=== PATIENT | female | born 1985 | race African-American/Black ===

== ENCOUNTER 2016-03-27 08:20 | Emergency (ER) | payer SELFPAY ==
[~2016-03-27] VITALS: Ht 165.1 cm; Wt 55.0 kg
[~2016-03-27 08:20] MED LIST: BENT20TA PO; FAMO1TAB73 PO; NORC5TAB PO; ZOFR4TAB3 SL
[2016-03-27 08:23] VITALS: BP 142/101; PULSE 110; RESP 20; TEMP 98; O2SAT 98
[2016-03-27] MEDS ORDERED: PANTOPRAZOLE SODIUM 40 MG VIAL IVP ONE (08:45)
[2016-03-27] MEDS ORDERED: METOCLOPRAMIDE HCL 10 MG/2 ML VIAL IVP ONE (08:45)
[2016-03-27] MEDS ORDERED: ALUMINUM/MAGNESIUM/SIMETH 30 ML CUP PO ONE (08:45)
[2016-03-27] MEDS ORDERED: diphenhydrAMINE HCL 50 MG/ML VIAL IVP ONE (08:45)
[2016-03-27] MEDS ORDERED: LORazepam 2 MG/ML VIAL IV PUSH ONE ×2 (08:45→09:30)
[2016-03-27] MEDS ORDERED: SODIUM CHLORIDE 0.9% FLUSH 5 ML FLUSH IVF PRN (08:45)
[2016-03-27] MEDS ORDERED: LIDOCAINE VISCOUS 2% SOLN 15 ML UDC PO ONE (08:45)
--- NOTE | 2016-03-27 08:46 | PD ---
HPI Chief Complaint: Abdominal Pain Time Seen by Provider: 08:29 Travel History International Travel<30 days: No Contact w/Intl Traveler<30days: No Traveled to known affect area: No History of Present Illness HPI 31-year-old female with history of gastritis, GERD here with complaint of abdominal pain. At approximately 8 PM yesterday patient began to have a burning , achy epigastric abdominal discomfort with associated nausea, vomiting. No hematemesis. Patient has been taking [id number] Prilosec for her GERD and states she's been compliant with this. She denies any dietary indiscretions. Patient states this is similar to her previous episodes of GERD or gastritis flares. She was seen in our ER recently with negative labs and CT abdomen and pelvis with similar symptoms. No fevers or chills. Normal bowel movements. Patient also has a history of anxiety and complains of same at this time. PFSH Past Medical History Anxiety: Yes Depression: Yes Influenza Vaccination: No ?: Not LMP: 03/2016 Past Surgical History Appendectomy: Yes Cholecystectomy: Yes Other Surgery: Yes (cysts removed off head, axillae, buttock) Social History Alcohol Use: Yes (social) Tobacco Use: Yes (1ppd) Substance Use: No Allergies-Medications (Allergen,Severity, Reaction): Coded Allergies: No Known Allergies (Unverified , 03/27/16) Reported Meds & Prescriptions Reported Meds & Active Scripts Active Reported Prilosec (Omeprazole) 20 Mg Cap 20 Mg PO DAILY Review of Systems Except as stated in HPI: all other systems reviewed are Neg Physical Exam Narrative GENERAL: Anxious female in no acute distress SKIN: Warm and dry. HEAD: Normocephalic. EYES: Pupils equal and round. No scleral icterus. No injection or drainage. ENT: No nasal bleeding or discharge. Mucous membranes pink and moist. NECK: Supple CARDIOVASCULAR: Regular rate and rhythm. No murmur appreciated. RESPIRATORY: No accessory muscle use. Clear to auscultation. Breath sounds equal bilaterally. GASTROINTESTINAL: Abdomen soft, mild epigastric discomfort without rebound or guarding MUSCULOSKELETAL: Normal gait. NEUROLOGICAL: Awake and alert. Normal speech. PSYCHIATRIC: Anxious Data Data Last Documented VS Vital Signs Date Time Temp Pulse Resp B/P Pulse Ox O2 Delivery O2 Flow Rate FiO2 03/27/16 09:18 89 22 124/85 96 Room Air 03/27/16 08:23 98.0 Orders Complete Blood Count With Diff (03/27/16 08:33) Comprehensive Metabolic Panel (03/27/16 08:33) Lipase (03/27/16 08:33) Iv Access Insert/Monitor (03/27/16 08:33) Ecg Monitoring (03/27/16 08:33) Oximetry (03/27/16 08:33) Pantoprazole Inj (Protonix Inj) (03/27/16 08:45) Sodium Chloride 0.9% Flush (Ns Flush) (03/27/16 08:45) Al-Mag Hy-Si 40-40-4 Mg/Ml Liq (Mag-Al P (03/27/16 08:45) Lidocaine 2% Viscous (Xylocaine 2% Visco (03/27/16 08:45) Diphenhydramine Inj (Benadryl Inj) (03/27/16 08:45) Metoclopramide Inj (Reglan Inj) (03/27/16 08:45) Lorazepam Inj (Ativan Inj) (03/27/16 08:45) Promethazine Inj (Phenergan Inj) (03/27/16 09:15) Lorazepam Inj (Ativan Inj) (03/27/16 09:30) Labs Laboratory Tests Test 03/27/16 08:45 White Blood Count 11.1 TH/MM3 Red Blood Count 5.72 MIL/MM3 Hemoglobin 14.7 GM/DL Hematocrit 44.5 % Mean Corpuscular Volume 77.8 FL Mean Corpuscular Hemoglobin 25.7 PG Mean Corpuscular Hemoglobin 33.0 % Concent Red Cell Distribution Width 14.1 % Platelet Count 534 TH/MM3 Mean Platelet Volume 8.5 FL Neutrophils (%) (Auto) 71.1 % Lymphocytes (%) (Auto) 23.6 % Monocytes (%) (Auto) 4.0 % Eosinophils (%) (Auto) 0.6 % Basophils (%) (Auto) 0.7 % Neutrophils # (Auto) 7.9 TH/MM3 Lymphocytes # (Auto) 2.6 TH/MM3 Monocytes # (Auto) 0.5 TH/MM3 Eosinophils # (Auto) 0.1 TH/MM3 Basophils # (Auto) 0.1 TH/MM3 CBC Comment DIFF FINAL Differential Comment Sodium Level 139 MEQ/L Potassium Level 4.6 MEQ/L Chloride Level 105 MEQ/L Carbon Dioxide Level 23.9 MEQ/L Anion Gap 10 MEQ/L Blood Urea Nitrogen 11 MG/DL Creatinine 0.94 MG/DL Estimat Glomerular Filtration 84 ML/MIN Rate Random Glucose 120 MG/DL Calcium Level 9.7 MG/DL Total Bilirubin 0.4 MG/DL Aspartate Amino Transf 40 U/L (AST/SGOT) Alanine Aminotransferase 26 U/L (ALT/SGPT) Alkaline Phosphatase 103 U/L Total Protein 9.4 GM/DL Albumin 4.3 GM/DL Lipase 165 U/L [facility] Medical Decision Making Medical Screen Exam Complete: Yes Emergency Medical Condition: Yes Medical Record Reviewed: Yes Differential Diagnosis 31-year-old female with history of gastritis, GERD, anxiety here with complaint of epigastric pain, nausea vomiting, anxiety. Symptoms consistent with gastritis versus GERD. Differential includes pancreatitis, hepatobiliary pathology. Anxiety certainly component of her underlying symptoms. Narrative Course Patient placed on monitor, IV established and blood obtained. Patient given IV PPI, GI cocktail, 50 mg Benadryl, 10 mg Reglan and 0.5 mg Ativan. Patient still symptomatic, almost forcing herself to vomit. Given IM Phenergan and additional Ativan. CBC, CMP, lipase and unremarkable. Patient was able to tolerate oral challenge and still complains of pain. She was informed that we do not treat chronic pain in her emergency department with narcotics but we are happy to try nonnarcotic options such as Toradol, Tylenol, ibuprofen, etc. Patient stated "no, I will just take something when I get home". Patient was discharged home with antiemetics and PPI. Diagnosis Primary Impression: Gastritis Qualified Code: K29.50 - Other chronic gastritis without hemorrhage Additional Impression: GERD (gastroesophageal reflux disease) Qualified Code: K21.9 - Gastroesophageal reflux disease without esophagitis Referrals: Ying Khan MD call for appointment [facility] [[email or web address]] call for appointment Primary Care Physician call for appointment Additional Instructions: Protonix as prescribed. Nausea medications as needed. Follow-up with primary care provider to establish care. Med/Other Pt SpecificInfo: Prescription(s) given Scripts Promethazine (Phenergan)25 Mg Tab25 Mg PO Q6H PRN (Nausea/Vomiting) #10 TAB Ref 0 Prov:Gracie Rabago MD 03/27/16 Pantoprazole (Protonix)40 Mg Tab40 Mg PO DAILY #30 TAB Ref 0 Prov:Gracie Rabago MD 03/27/16 Disposition: 01 DISCHARGE HOME Condition: Stable Gracie Rabago MD Mar 27, 2016 08:46
[2016-03-27 09:09] LABS: AUTOMATED NEUTROPHIL # 7.9 TH/MM3 (1.8-7.7); BASOPHIL # 0.1 TH/MM3 (0-0.2); BASOPHIL % 0.7 % (0.0-2.0); EOSINOPHIL # 0.1 TH/MM3 (0-0.4); EOSINOPHIL % 0.6 % (0.0-4.0); HEMATOCRIT 44.5 % (35.0-46.0); LYMPH % 23.6 % (9.0-44.0); LYMPHOCYTE # 2.6 TH/MM3 (1.0-4.8); MEAN CELL VOLUME 77.8 FL (80.0-100.0); MEAN CORPUSCULAR HEMOGLOBIN 25.7 PG (27.0-34.0); NEUT % 71.1 % (16.0-70.0); PLATELET COUNT 534 TH/MM3 (150-450); RED BLOOD COUNT 5.72 MIL/MM3 (4.00-5.30); RED CELL DISTRIBUTION WIDTH 14.1 % (11.6-17.2); WHITE BLOOD COUNT 11.1 TH/MM3 (4.0-11.0)
[2016-03-27 09:10] LABS: HEMO FLAGS DIFF FINAL
[2016-03-27] MEDS ORDERED: PROMETHAZINE INJ 25 MG/ML VIAL IM ONE (09:15)
[2016-03-27] MEDS ORDERED: PRIL20CA9 PO (09:15)
[2016-03-27 09:18] VITALS: BP 124/85; PULSE 89; RESP 22; O2SAT 96
[2016-03-27 09:29] LABS: ALKALINE PHOSPHATASE 103 U/L (45-117); ALT (GPT) 26 U/L (10-53); ANION GAP 10 MEQ/L (5-15); AST (GOT) 40 U/L (15-37); BICARBONATE 23.9 MEQ/L (21.0-32.0); BLOOD UREA NITROGEN 11 MG/DL (7-18); CHLORIDE 105 MEQ/L (98-107); GLOMERULAR FILTRATION RATE 84 ML/MIN (>89); POTASSIUM 4.6 MEQ/L (3.5-5.1); SODIUM (NA) 139 MEQ/L (136-145); TOTAL BILIRUBIN ADULT 0.4 MG/DL (0.2-1.0)
[2016-03-27] MEDS ORDERED: PROT40TA PO (09:59)
[2016-03-27] MEDS ORDERED: PROM25TA5 PO (09:59)
== END 2016-03-27 10:22 | disposition home or self-care (01) ==
LOC: NEPE 08:20
DX: K29.70 Gastritis, unspecified, without bleeding (principal); K21.9 Gastro-esophageal reflux disease without esophagitis; R11.2 Nausea with vomiting, unspecified; F17.210 Nicotine dependence, cigarettes, uncomplicated
CPT/HCPCS: 80053; 83690; 85025; 96372; 96374; 96375; 96376; 99284; C9113; J1200; J2060; J2550; J2765

== ENCOUNTER 2016-04-07 13:40 | Emergency (ER) | payer OTHER ==
[~2016-04-07] VITALS: Ht 165.1 cm; Wt 54.0 kg
[~2016-04-07 13:40] MED LIST changes: -BENT20TA PO; -FAMO1TAB73 PO; -NORC5TAB PO; +PRIL20CA9 PO; +PROM25TA5 PO; +PROT40TA PO; -ZOFR4TAB3 SL
[2016-04-07 14:24] VITALS: BP 129/60; PULSE 100; RESP 12; TEMP 98.4; O2SAT 94
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
[2016-04-07] MEDS ORDERED: KETOROLAC TROMETHAMINE 60 MG/2 ML (IM) VIAL IM ONE (15:15)
[2016-04-07] MEDS ORDERED: ORPHENADRINE INJ 60 MG/2 ML AMP IM ONE (15:15)
[2016-04-07] MEDS ORDERED: CYCL1TAB29 PO (15:21)
[2016-04-07] MEDS ORDERED: IBUP800T23 PO (15:21)
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
[2016-04-07 16:11] VITALS: BP 118/62
== END 2016-04-07 16:12 | disposition home or self-care (01) ==
LOC: NEPB 13:40
DX: S20.219A Contusion of unspecified front wall of thorax, initial encounter (principal); S16.1XXA Strain of muscle, fascia and tendon at neck level, initial encounter; F17.210 Nicotine dependence, cigarettes, uncomplicated; V43.62XA Car passenger injured in collision with other type car in traffic accident, initial encounter
CPT/HCPCS: 71010; 96372; 99284; J1885; J2360

== ENCOUNTER 2016-06-04 20:05 | Emergency (ER) | payer OTHER ==
[~2016-06-04] VITALS: Ht 165.1 cm; Wt 59.1 kg
[~2016-06-04 20:05] MED LIST changes: +CYCL1TAB29 PO; +IBUP800T23 PO
[2016-06-04 20:08] VITALS: BP 160/111; PULSE 140; RESP 16; TEMP 98.6; O2SAT 96
[2016-06-04] MEDS ORDERED: LORazepam 2 MG/ML VIAL IV PUSH ONE (22:30)
[2016-06-04] MEDS ORDERED: SODIUM CHLOR 0.9% 1000 ML INJ 1,000 ML IV ONE ×2 (22:30)
[2016-06-04] MEDS ORDERED: PROCHLORPERAZINE INJ 10 MG/2 ML VIAL IV PUSH ONE (22:30)
[2016-06-04] MEDS ORDERED: ZYPR7.5T PO (22:30)
[2016-06-04] MEDS ORDERED: diphenhydrAMINE HCL 50 MG/ML VIAL IV PUSH ONE (22:30)
--- NOTE | 2016-06-04 22:47 | PD ---
HPI Chief Complaint: Abdominal Pain Time Seen by Provider: 22:18 Travel History International Travel<30 days: No Contact w/Intl Traveler<30days: No Traveled to known affect area: No History of Present Illness HPI So 31-year-old woman who presents to the emergency department he states "I've been having panic attack after panic attack". She states she normally is on medicines for anxiety and depression but has not had it 2 weeks. She is complaining with a new psychiatrist tomorrow. [place]. She states along with her anxiety and panic symptoms she's had some nausea vomiting abdominal pain and stool changes. States she was told to patch his abdominal migraines and often has GI upset with her anxiety symptoms. She also has had colitis 2 times in the past year or so. Denies any other recent illness or injury. History Past Medical History Narrative Medical Anxiety and panic, depression Abdominal migraines, colitis LMP: 05/30/2016 Social History Alcohol Use: Yes (social) Tobacco Use: Yes (1ppd) Allergies-Medications (Allergen,Severity, Reaction): Coded Allergies: No Known Allergies (Unverified , 06/04/16) Reported Meds & Prescriptions Reported Meds & Active Scripts Active Reported Zyprexa (Olanzapine) 7.5 Mg Tab 7.5 Mg PO HS Review of Systems Except as stated in HPI: all other systems reviewed are Neg Physical Exam Narrative GENERAL: Anxious appearing 31-year-old woman, standing in the bed with her hands on the bed and bent over, little bit a hyperventilation, SKIN: Focused skin assessment warm/dry. HEAD: Atraumatic. Normocephalic. EYES: Pupils equal and round. No scleral icterus. No injection or drainage. ENT: No nasal bleeding or discharge. Mucous membranes pink and moist. NECK: Trachea midline. No JVD. CARDIOVASCULAR: Heart rate rapid and irregular. RESPIRATORY: No accessory muscle use. Clear to auscultation. Breath sounds equal bilaterally. GASTROINTESTINAL: Demonstrates flat and soft but does have some mild diffuse tenderness. No rebound or guarding. MUSCULOSKELETAL: No obvious deformities. No clubbing. No cyanosis. No edema. NEUROLOGICAL: Awake and alert. No obvious cranial nerve deficits. Motor grossly within normal limits. Normal speech. PSYCHIATRIC: Anxious. Data Data Last Documented VS Vital Signs Date Time Temp Pulse Resp B/P Pulse Ox O2 Delivery O2 Flow Rate FiO2 06/04/16 22:22 18 06/04/16 20:08 98.6 140 160/111 96 Room Air Orders Complete Blood Count With Diff (06/04/16 22:29) Comprehensive Metabolic Panel (06/04/16 22:29) Beta Hcg (Quant/Titer) (06/04/16 22:29) Urinalysis - C+S If Indicated (06/04/16 22:29) Iv Access Insert/Monitor (06/04/16 22:29) Lorazepam Inj (Ativan Inj) (06/04/16 22:30) Prochlorperazine Inj (Compazine Inj) (06/04/16 22:30) Diphenhydramine Inj (Benadryl Inj) (06/04/16 22:30) Sodium Chlor 0.9% 1000 Ml Inj (Ns 1000 M (06/04/16 22:30) Sodium Chlor 0.9% 1000 Ml Inj (Ns 1000 M (06/04/16 22:30) Ketorolac Inj (Toradol Inj) (06/04/16 23:30) Labs Laboratory Tests Test 06/04/16 23:00 White Blood Count 5.3 TH/MM3 Red Blood Count 5.62 MIL/MM3 Hemoglobin 14.2 GM/DL Hematocrit 42.8 % Mean Corpuscular Volume 76.2 FL Mean Corpuscular Hemoglobin 25.2 PG Mean Corpuscular Hemoglobin 33.1 % Concent Red Cell Distribution Width 13.7 % Platelet Count 398 TH/MM3 Mean Platelet Volume 8.1 FL Neutrophils (%) (Auto) 51.4 % Lymphocytes (%) (Auto) 38.4 % Monocytes (%) (Auto) 9.0 % Eosinophils (%) (Auto) 0.4 % Basophils (%) (Auto) 0.8 % Neutrophils # (Auto) 2.7 TH/MM3 Lymphocytes # (Auto) 2.0 TH/MM3 Monocytes # (Auto) 0.5 TH/MM3 Eosinophils # (Auto) 0.0 TH/MM3 Basophils # (Auto) 0.0 TH/MM3 CBC Comment DIFF FINAL Differential Comment Sodium Level 136 MEQ/L Potassium Level 3.1 MEQ/L Chloride Level 98 MEQ/L Carbon Dioxide Level 26.7 MEQ/L Anion Gap 11 MEQ/L Blood Urea Nitrogen 12 MG/DL Creatinine 0.92 MG/DL Estimat Glomerular Filtration 86 ML/MIN Rate Random Glucose 116 MG/DL Calcium Level 9.5 MG/DL Total Bilirubin 0.7 MG/DL Aspartate Amino Transf 22 U/L (AST/SGOT) Alanine Aminotransferase 21 U/L (ALT/SGPT) Alkaline Phosphatase 90 U/L Total Protein 8.7 GM/DL Albumin 4.2 GM/DL Human Chorionic Gonadotropin, LESS THAN 1 Quant MIU/ML MDM Medical Decision Making Medical Screen Exam Complete: Yes Emergency Medical Condition: Yes Interpretation(s) LABS: CBC is unremarkable. CMP is unremarkable HCG is negative Differential Diagnosis Anxiety, dehydration, infection, colitis, other Narrative Course Medical decision-making 31-year-old woman presents emergency Department with some GI upset and some worsening anxiety and panic symptoms. Patient seems to attribute all of her symptoms to her panic disorder. She is not on benzodiazepines as an outpatient , and she's been 2 weeks out of medicines making any kind of withdrawal syndrome less likely. She does have some elevated heart rate. We'll give her IV fluids, benzos, check labs and urine, likely discharge for follow-up with her new psychiatrist tomorrow as scheduled. FINAL: Patient feeling improved. Still some nausea and abdominal pain. She was given Toradol. She is requesting opiates. Refuses Tylenol or Bentyl. I don't think we should give opiates for this complaint. She looks otherwise well. She is a month or psychiatrist tomorrow. States she uses Phenergan at home for nausea sometimes. We will give her prescription for Zofran. Outpatient follow-up as planned. Diagnosis Primary Impression: Panic attack Additional Impression: Nausea & vomiting Qualified Code: R11.2 - Non-intractable vomiting with nausea, unspecified vomiting type Additional Instructions: Use Zofran as needed for nausea or vomiting. Follow up with her psychiatrist tomorrow as planned. Return to the emergency department for any new or worsening symptoms. Med/Other Pt SpecificInfo: Prescription(s) given Scripts Ondansetron Odt (Zofran Odt)4 Mg Tab4 Mg SL Q8HR PRN (Nausea/Vomiting) #15 TAB May substitute non-ODT form. Prov:Mateo Grimes MD 06/04/16 Disposition: 01 DISCHARGE HOME Condition: Stable Mateo Grimes MD Jun 04, 2016 22:47
[2016-06-04 23:15] LABS: AUTOMATED NEUTROPHIL # 2.7 TH/MM3 (1.8-7.7); BASOPHIL % 0.8 % (0.0-2.0); EOSINOPHIL % 0.4 % (0.0-4.0); HEMATOCRIT 42.8 % (35.0-46.0); HEMO FLAGS DIFF FINAL; LYMPH % 38.4 % (9.0-44.0); MEAN CELL VOLUME 76.2 FL (80.0-100.0); MEAN CORPUSCULAR HEMOGLOBIN 25.2 PG (27.0-34.0); MEAN CORPUSCULAR HGB CONC 33.1 % (32.0-36.0); NEUT % 51.4 % (16.0-70.0); PLATELET COUNT 398 TH/MM3 (150-450); RED BLOOD COUNT 5.62 MIL/MM3 (4.00-5.30); RED CELL DISTRIBUTION WIDTH 13.7 % (11.6-17.2); WHITE BLOOD COUNT 5.3 TH/MM3 (4.0-11.0)
[2016-06-04] MEDS ORDERED: KETOROLAC TROMETHAMINE 30 MG/ML (IVP) VIAL IVP ONE (23:30)
[2016-06-04 23:44] LABS: ANION GAP 11 MEQ/L (5-15); AST (GOT) 22 U/L (15-37); BICARBONATE 26.7 MEQ/L (21.0-32.0); BLOOD UREA NITROGEN 12 MG/DL (7-18); CHLORIDE 98 MEQ/L (98-107); GLOMERULAR FILTRATION RATE 86 ML/MIN (>89); POTASSIUM 3.1 MEQ/L (3.5-5.1); SODIUM (NA) 136 MEQ/L (136-145)
[2016-06-04 23:49] LABS: ALKALINE PHOSPHATASE 90 U/L (45-117); ALT (GPT) 21 U/L (10-53); BETA HCG QUANT LESS THAN 1 MIU/ML (0-5); TOTAL BILIRUBIN ADULT 0.7 MG/DL (0.2-1.0)
[2016-06-04] MEDS ORDERED: ZOFR4TAB3 SL (23:55)
[2016-06-05] MEDS ORDERED: ONDANSETRON HCL 4 MG/2 ML VIAL IV ONE
== END 2016-06-05 01:09 | disposition home or self-care (01) ==
LOC: NEPC 20:05
DX: F41.0 Panic disorder [episodic paroxysmal anxiety] (principal); F41.9 Anxiety disorder, unspecified; R11.2 Nausea with vomiting, unspecified; F32.9 Major depressive disorder, single episode, unspecified; F17.210 Nicotine dependence, cigarettes, uncomplicated
CPT/HCPCS: 80053; 84702; 85025; 96374; 96375; 99284; J0780; J1200; J1885; J2060; J2405; J7030

== ENCOUNTER 2016-06-22 08:06 | Emergency (ER) | payer MEDICAID, OTHER ==
[~2016-06-22] VITALS: Ht 165.1 cm; Wt 62.0 kg
[~2016-06-22 08:06] MED LIST changes: -CYCL1TAB29 PO; -IBUP800T23 PO; -PRIL20CA9 PO; -PROM25TA5 PO; -PROT40TA PO; +ZOFR4TAB3 SL; +ZYPR7.5T PO
[2016-06-22 08:09] VITALS: BP 125/96; PULSE 89; RESP 18; TEMP 99.1; O2SAT 98
--- NOTE | 2016-06-22 08:36 | PD ---
HPI . suicidal ideation Chief Complaint: Medication Refill Request Time Seen by Provider: 08:36 Travel History International Travel<30 days: No Contact w/Intl Traveler<30days: No Traveled to known affect area: No History of Present Illness HPI 31-year-old female with history of anxiety and depression here with complaints of worsening anxiety and depression. Patient said she's been off of her medications for quite some time and she is feeling suicidal. She has an appointment with Bala Lopez on Wednesday and cannot wait until then. She was recently hospitalized at [facility] for similar and was given Ativan. She has since run out and now feeling suicidal. Her only concern is that she has a 6-year-old child who is at school and she does not know who will be able to pick him up. She is very tearful and says she is thinking of harming herself , but does not have an actual plan. [facility] Past Medical History Anxiety: Yes Depression: Yes Gastrointestinal Disorders: Yes (GASTRITIS) ?: Not LMP: 06/20/16 Past Surgical History Appendectomy: Yes Cholecystectomy: Yes Other Surgery: Yes (cysts removed off head, axillae, buttock) Social History Alcohol Use: Yes (social) Tobacco Use: Yes (1ppd) Substance Use: No Allergies-Medications (Allergen,Severity, Reaction): Coded Allergies: No Known Allergies (Unverified , 06/22/16) Reported Meds & Prescriptions Reported Meds & Active Scripts Active Reported Zoloft (Sertraline HCl) 100 Mg Tab 100 Mg PO DAILY Zyprexa (Olanzapine) 7.5 Mg Tab 7.5 Mg PO HS Review of Systems General / Constitutional: No: Fever Eyes: No: Visual changes HENT: No: Headaches Cardiovascular: No: Chest Pain or Discomfort Respiratory: No: Shortness of Breath Gastrointestinal: No: Abdominal Pain Genitourinary: No: Dysuria Musculoskeletal: No: Pain Skin: No Rash Neurologic: No: Weakness Psychiatric: Positive: Anxiety, Depression, Suicidal Ideations Endocrine: No: Polydipsia Hematologic/Lymphatic: No: Easy Bruising Physical Exam Narrative GENERAL: AAO x 3, Well-nourished, well-developed patient. Tearful and crying in the room. Curled in position. SKIN: Warm and dry. No visible rashes or bruising. HEAD: Normocephalic and atraumatic. EYES: No scleral icterus. No injection or drainage. EOM intact, PERRLA ENT: No nasal drainage noted. Mucous membranes pink. Airway patent. NECK: Supple, trachea midline. No JVD. No lymphadenopathy CARDIOVASCULAR: Regular rate and rhythm without murmurs, gallops, or rubs. RESPIRATORY: Breath sounds equal bilaterally. No accessory muscle use. No rhonchi or rales. GASTROINTESTINAL: Abdomen soft, non-tender, nondistended. EXTREMITIES: No cyanosis or edema. BACK: Nontender without obvious deformity. No CVA tenderness. PSYCH: AAO x 3, depressed affect. Data Data Last Documented VS Vital Signs Date Time Temp Pulse Resp B/P Pulse Ox O2 Delivery O2 Flow Rate FiO2 06/22/16 08:09 99.1 89 18 125/96 98 Orders Complete Blood Count With Diff (06/22/16 09:13) Comprehensive Metabolic Panel (06/22/16 09:13) Ed Urine Pregnancytest Poc (06/22/16 09:13) Psych Screen (06/22/16 09:13) Drug Screen, Random Urine (06/22/16 09:13) MDM Medical Decision Making Medical Screen Exam Complete: Yes Emergency Medical Condition: Yes Medical Record Reviewed: Yes Differential Diagnosis Suicidal ideation, depression, anxiety Narrative Course 31-year-old female with history of anxiety and depression here with complaints of worsening anxiety and depression. Patient said she's been off of her medications for quite some time and she is feeling suicidal. She has an appointment with Bala Lopez on Wednesday and cannot wait until then. She was recently hospitalized at [facility] for similar and was given Ativan. She has since run out and now feeling suicidal. Her only concern is that she has a 6-year-old child who is at school and she does not know who will be able to pick him up. She is very tearful and says she is thinking of harming herself , but does not have an actual plan. Patient was transferred to a medical pod for further evaluation and treatment. Case was discussed with Dr. Grimes. Diagnosis Primary Impression: Suicidal thoughts Condition: Stable Romana Fried Jun 22, 2016 08:36
[2016-06-22] MEDS ORDERED: ZOLO100T PO ×2 (08:38→13:25)
[2016-06-22 09:38] LABS: BASOPHIL # 0.1 TH/MM3 (0-0.2); BASOPHIL % 0.7 % (0.0-2.0); EOSINOPHIL % 0.7 % (0.0-4.0); HEMATOCRIT 44.3 % (35.0-46.0); HEMO FLAGS DIFF FINAL; LYMPH % 22.3 % (9.0-44.0); LYMPHOCYTE # 1.6 TH/MM3 (1.0-4.8); MEAN CORPUSCULAR HEMOGLOBIN 26.2 PG (27.0-34.0); MEAN CORPUSCULAR HGB CONC 33.6 % (32.0-36.0); MONO % 5.3 % (0.0-8.0); PLATELET COUNT 388 TH/MM3 (150-450); RED BLOOD COUNT 5.67 MIL/MM3 (4.00-5.30); RED CELL DISTRIBUTION WIDTH 14.9 % (11.6-17.2); WHITE BLOOD COUNT 7.1 TH/MM3 (4.0-11.0)
[2016-06-22] MEDS ORDERED: LORazepam 1 MG TAB PO ONE (09:45)
[2016-06-22 09:48] LABS: ANION GAP 10 MEQ/L (5-15); AST (GOT) 20 U/L (15-37); BICARBONATE 25.5 MEQ/L (21.0-32.0); BLOOD UREA NITROGEN 12 MG/DL (7-18); CHLORIDE 102 MEQ/L (98-107); GLOMERULAR FILTRATION RATE 84 ML/MIN (>89); POTASSIUM 4.2 MEQ/L (3.5-5.1); SODIUM (NA) 137 MEQ/L (136-145)
[2016-06-22 09:51] LABS: ALKALINE PHOSPHATASE 102 U/L (45-117); ALT (GPT) 24 U/L (10-53); TOTAL BILIRUBIN ADULT 0.6 MG/DL (0.2-1.0)
[2016-06-22 10:30] VITALS: BP 122/81; PULSE 76; RESP 16; O2SAT 98
--- NOTE | 2016-06-22 11:17 | PD ---
HPI Chief Complaint: Medication Refill Request Time Seen by Provider: 09:13 Travel History International Travel<30 days: No Contact w/Intl Traveler<30days: No Traveled to known affect area: No History of Present Illness HPI 31-year-old woman who presents to the emergency department with increased anxiety symptoms, depression symptoms, with suicidal thoughts. She's had trouble with anxiety since she moved here recently. I saw her once the emergency department earlier with the symptoms. She had a psychiatrist over the next day but apparently went back to the emergency department in [facility]. Her previous [facility] psychiatrist called her in some Zyprexa which she was taking for her anxiety. She is now out of these and having increased depression symptoms and anxiety symptoms. She endorses path of wish but no actual suicidal plan. She would like to see psychiatry. History Past Medical History Narrative Medical Anxiety, panic, depression Abdominal migraines, colitis Tetanus Vaccination: Never Vaccinated Influenza Vaccination: No LMP: 06/20/16 Social History Alcohol Use: Yes (social) Tobacco Use: Yes (1ppd) Allergies-Medications (Allergen,Severity, Reaction): Coded Allergies: No Known Allergies (Unverified , 06/22/16) Reported Meds & Prescriptions Reported Meds & Active Scripts Active Reported Zoloft (Sertraline HCl) 100 Mg Tab 100 Mg PO DAILY Zyprexa (Olanzapine) 7.5 Mg Tab 7.5 Mg PO HS Review of Systems Except as stated in HPI: all other systems reviewed are Neg Physical Exam Narrative GENERAL: 31-year-old woman, tearful, curled up in the bed crying. SKIN: Focused skin assessment warm/dry. CARDIOVASCULAR: Regular rate and rhythm. No murmur appreciated. RESPIRATORY: No accessory muscle use. Clear to auscultation. Breath sounds equal bilaterally. GASTROINTESTINAL: Abdomen soft, non-tender, nondistended. Hepatic and splenic margins not palpable. MUSCULOSKELETAL: No obvious deformities. No clubbing. No cyanosis. No edema. NEUROLOGICAL: Awake and alert. No obvious cranial nerve deficits. Motor grossly within normal limits. Normal speech. PSYCHIATRIC: Tearful and crying and sad. Expressing SI. Data Data Last Documented VS Vital Signs Date Time Temp Pulse Resp B/P Pulse Ox O2 Delivery O2 Flow Rate FiO2 06/22/16 08:09 99.1 89 18 125/96 98 Orders Complete Blood Count With Diff (06/22/16 09:13) Comprehensive Metabolic Panel (06/22/16 09:13) Ed Urine Pregnancytest Poc (06/22/16 09:13) Psych Screen (06/22/16 09:13) Drug Screen, Random Urine (06/22/16 09:13) Lorazepam (Ativan) (06/22/16 09:45) Diet Regular Basic (06/22/16 Lunch) Labs Laboratory Tests Test 06/22/16 09:00 White Blood Count 7.1 TH/MM3 Red Blood Count 5.67 MIL/MM3 Hemoglobin 14.9 GM/DL Hematocrit 44.3 % Mean Corpuscular Volume 78.0 FL Mean Corpuscular Hemoglobin 26.2 PG Mean Corpuscular Hemoglobin 33.6 % Concent Red Cell Distribution Width 14.9 % Platelet Count 388 TH/MM3 Mean Platelet Volume 7.5 FL Neutrophils (%) (Auto) 71.0 % Lymphocytes (%) (Auto) 22.3 % Monocytes (%) (Auto) 5.3 % Eosinophils (%) (Auto) 0.7 % Basophils (%) (Auto) 0.7 % Neutrophils # (Auto) 5.0 TH/MM3 Lymphocytes # (Auto) 1.6 TH/MM3 Monocytes # (Auto) 0.4 TH/MM3 Eosinophils # (Auto) 0.0 TH/MM3 Basophils # (Auto) 0.1 TH/MM3 CBC Comment DIFF FINAL Differential Comment Sodium Level 137 MEQ/L Potassium Level 4.2 MEQ/L Chloride Level 102 MEQ/L Carbon Dioxide Level 25.5 MEQ/L Anion Gap 10 MEQ/L Blood Urea Nitrogen 12 MG/DL Creatinine 0.94 MG/DL Estimat Glomerular Filtration 84 ML/MIN Rate Random Glucose 96 MG/DL Calcium Level 9.7 MG/DL Total Bilirubin 0.6 MG/DL Aspartate Amino Transf 20 U/L (AST/SGOT) Alanine Aminotransferase 24 U/L (ALT/SGPT) Alkaline Phosphatase 102 U/L Total Protein 9.1 GM/DL Albumin 4.0 GM/DL [facility] Medical Decision Making Medical Screen Exam Complete: Yes Emergency Medical Condition: Yes Interpretation(s) LABS: CBC unremarkable. CMP unremarkable. Differential Diagnosis Anxiety, depression, SI, other Narrative Course Medical decision making 31-year-old woman who was increased anxiety, depression, and concern for suicidality. She looks otherwise well. She was given treatment for anxiety. She is medically clear for psychiatric evaluation. Diagnosis Primary Impression: Suicidal thoughts Condition: Mateo Atkins MD Jun 22, 2016 11:17
[2016-06-22] MEDS ORDERED: ONDANSETRON ODT 4 MG TAB PO ONE (12:45)
--- NOTE | 2016-06-22 13:18 | PD ---
History of Present Illness Chief Complaint: Medication Refill Request Time Seen by Provider: 13:00 Travel History International Travel<30 Days: No Contact w/Intl Traveler<30days: No Known affected area: No Legal Status Legal Status: Voluntary History of Present Illness: History of Present Illness HPI 31-year-old female with history of anxiety and depression who presents under a voluntary status for evaluation of of worsening anxiety and depression for the past several days. She attributes to having been off her psychiatric medication. She has an appointment with Bala Lopez on Wednesday and cannot wait until then. She was recently hospitalized at [facility] for similar and was given Ativan. Upon arrival to ED she was very tearful and said she is thinking of harming herself, but does not have an actual plan. Seen. Record reviewed. No previous contact with [facility] psychiatry. Patient was seen in ED in June 04 for reports of panic attacks and was medicated with Ativan. Patient is alert, oriented. She is tearful. Speech is clear and logical. There is no pressured speech. There is no psychosis and no behaviors indicating a jolie or hypomania. Mood is anxious as well as depressed. States that when she is feeling depressed she tends to sleep a lot and has been doing so. Patient adamantly denies any suicidal ideation and does not want to be admitted to an in patient psychiatric unit. She has a 6 year old son that she is worried about and wants to be able to go home before he is released from school. She would like to get a RX for the Zyprexa and the Zoloft which she reports has worked well for her in the past. Patient denies any substance use but current toxicology is positive for cocaine, benzos as well as cannabinoids. PFSH Past Medical History Anxiety: Yes Depression: Yes Gastrointestinal Disorders: Yes (GASTRITIS) Medical other: Yes (HYDRONITIS) Tetanus Vaccination: Never Vaccinated Influenza Vaccination: No ?: Not LMP: 06/20/16 Past Surgical History Abdominal Surgery: Yes (HERNIA REPAIR) Appendectomy: Yes Cholecystectomy: Yes Other Surgery: Yes (cysts removed off head, axillae, buttock) Psychiatric History Psychiatric History Hx Psychiatric Treatment: Reports hx of 4 to 5 previous hosp for depression and anxiety. Her first hosp was in 2008. last hosp last wekk at [facility]. Has appointmetn at [facility] on Wednesday for medication. History of Inpatient Treatment: Yes (In [facility] beg in 2008) Guns or firearms in home: Yes (Locked away and belong to her aunt) Social History Born in [place]. Moved here in 2015. Currently living with her aunt and her 6 year old son. 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 Hx Alcohol Use: Yes (social) Hx Tobacco Use: Yes (1ppd) Hx Substance Use: No (denies but positive screen) Substance Use Type: Marijuana, Cocaine Hx of Substance Use Treatment: No Family Psychiatric History Maternal grandmother with bipolar disorder Allergies-Medications (Allergen,Severity, Reaction): Coded Allergies: No Known Allergies (Unverified , 06/22/16) Reported Meds & Prescriptions Reported Meds & Active Scripts Active Reported Zoloft (Sertraline HCl) 100 Mg Tab 100 Mg PO DAILY Zyprexa (Olanzapine) 7.5 Mg Tab 7.5 Mg PO HS Review of Systems Except as stated in HPI: all other systems reviewed are Neg Psychiatric: COMPLAINS OF: Anxiety, Depression Exam Alert: Yes [place]: Person (ox4) Mood: Anxious, Depressed Affect: Appropriate Speech: Clear, Logical Eye Contact: Normal Memory Intact: Comment (no impairmetn) Hallucinations: Other (negative) Delusions: No Suicidal: Ideation (denies any) Homicidal: Ideation (deneis any) Insight/Judgement Fair . Not impaired. MDM Medical Decision Making Medical Record Reviewed: Yes Assessment/Plan 31 year old female with reported history of depression and anxiety who presents under a voluntary status requesting a refill on her psychiatric medication. At this time the patient is denying any suicidal ideation,intent or plan. There is no psychosis and no jolie. She is future oriented and is requesting release from ED. Some of her symptoms may be attributed to her current cocaine use although she denies use. At this time patient does not meet any criteria for BA. She has an appointment on Wednesday to initiate treatment at [facility]. I will provide her with seven day supply of Zyprexa and Zoloft. Discharge from Ed. Psychoeducation and supportive interventions are provided. Orders Complete Blood Count With Diff (06/22/16 09:13) Comprehensive Metabolic Panel (06/22/16 09:13) Ed Urine Pregnancytest Poc (06/22/16 09:13) Psych Screen (06/22/16 09:13) Drug Screen, Random Urine (06/22/16 09:13) Lorazepam (Ativan) (06/22/16 09:45) Diet Regular Basic (06/22/16 Lunch) Ondansetron Odt (Zofran Odt) (06/22/16 12:45) Results Vital Signs Date Time Temp Pulse Resp B/P Pulse Ox O2 Delivery O2 Flow Rate FiO2 06/22/16 10:30 76 16 122/81 98 06/22/16 08:09 99.1 89 18 125/96 98 Laboratory Tests Test 06/22/16 09:00 White Blood Count 7.1 Red Blood Count 5.67 Hemoglobin 14.9 Hematocrit 44.3 Mean Corpuscular Volume 78.0 Mean Corpuscular Hemoglobin 26.2 Mean Corpuscular Hemoglobin 33.6 Concent Red Cell Distribution Width 14.9 Platelet Count 388 Mean Platelet Volume 7.5 Neutrophils (%) (Auto) 71.0 Lymphocytes (%) (Auto) 22.3 Monocytes (%) (Auto) 5.3 Eosinophils (%) (Auto) 0.7 Basophils (%) (Auto) 0.7 Neutrophils # (Auto) 5.0 Lymphocytes # (Auto) 1.6 Monocytes # (Auto) 0.4 Eosinophils # (Auto) 0.0 Basophils # (Auto) 0.1 CBC Comment DIFF FINAL Differential Comment Sodium Level 137 Potassium Level 4.2 Chloride Level 102 Carbon Dioxide Level 25.5 Anion Gap 10 Blood Urea Nitrogen 12 Creatinine 0.94 Estimat Glomerular Filtration 84 Rate Random Glucose 96 Calcium Level 9.7 Total Bilirubin 0.6 Aspartate Amino Transf 20 (AST/SGOT) Alanine Aminotransferase 24 (ALT/SGPT) Alkaline Phosphatase 102 Total Protein 9.1 Albumin 4.0 Diagnosis Primary Impression: Anxiety Additional Impression: Depression Psychiatrically Cleared: Yes Med/ Other Pt Specific Info: Prescription(s) given Prescriptions Sertraline (Zoloft)100 Mg [id number] Mg PO DAILY 7 Days Ref 0 Prov:Porter,Linda Sera Borges DERIAN 06/22/16 Olanzapine (Zyprexa)7.5 Mg Tab7.5 Mg PO DAILY 7 Days Ref 0 Prov:Porter,Linda Sera Borges ARN 06/22/16 Disposition: 01 DISCHARGE HOME Condition: Stable Problem Qualifiers Additional Impression: Depression Qualified Code: 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
[2016-06-22] MEDS ORDERED: ZYPR7.5T PO (13:25)
[2016-06-22 14:02] LABS: AMPHETAMINE, URINE NEG (NEG); BARBITURATES, URINE NEG (NEG); COCAINE, URINE POS (NEG)
== END 2016-06-22 13:58 | disposition home or self-care (01) ==
LOC: NEPD 08:06 → NEPB 13:58
DX: F33.9 Major depressive disorder, recurrent, unspecified (principal); R45.851 Suicidal ideations; F17.210 Nicotine dependence, cigarettes, uncomplicated
CPT/HCPCS: 80053; 80307; 84703; 85025; 99284

== ENCOUNTER 2016-07-13 14:40 | Emergency (ER) | payer MEDICAID ==
[~2016-07-13] VITALS: Ht 165.1 cm; Wt 58.0 kg
[~2016-07-13 14:40] MED LIST changes: -ZOFR4TAB3 SL; +ZOLO100T PO
[2016-07-13 14:42] VITALS: BP 153/103; PULSE 97; RESP 20; TEMP 98.6; O2SAT 100
--- NOTE | 2016-07-13 15:29 | PD ---
Physical Exam Date Seen by Provider: July 13, 2016 Time Seen by Provider: 15:24 Narrative 31 y/o female here with complaints of Nausea, Vomitting and anxiety. Patient feels anxious and suicidal. States did not take her meds today. V/S stable Awaiting Bed Placement. Data Data Last Documented VS Vital Signs Date Time Temp Pulse Resp B/P Pulse Ox O2 Delivery O2 Flow Rate FiO2 07/13/16 14:42 98.6 97 20 153/103 100 Room Air [facility] Medical Record Reviewed: Yes Supervised Visit with HALLIE: Yes Condition: Stable Darryl Silveira July 13, 2016 15:29
== END 2016-07-13 15:45 | disposition left against medical advice (07) ==
LOC: NED 14:40
DX: R11.2 Nausea with vomiting, unspecified (principal); F41.9 Anxiety disorder, unspecified; R45.851 Suicidal ideations; Z53.21 Procedure and treatment not carried out due to patient leaving prior to being seen by health care provider
CPT/HCPCS: 99281

== ENCOUNTER 2016-07-16 04:03 | Emergency (ER) | payer MEDICAID ==
[2016-07-16 04:08] VITALS: BP 134/98; PULSE 103; RESP 16; TEMP 98.7; O2SAT 99
[2016-07-16] MEDS ORDERED: CELE20TA PO (04:21)
[2016-07-16] MEDS ORDERED: SODIUM CHLOR 0.9% 1000 ML INJ 1,000 ML IV SCH (04:23)
[2016-07-16] MEDS ORDERED: ONDANSETRON HCL 4 MG/2 ML VIAL IVP ONE (04:30)
[2016-07-16] MEDS ORDERED: SODIUM CHLORIDE 0.9% FLUSH 10 ML FLUSH IV FLUSH PRN (04:30)
[2016-07-16] MEDS ORDERED: KETOROLAC TROMETHAMINE 30 MG/ML (IVP) VIAL IV PUSH ONE (05:00)
[2016-07-16 05:29] LABS: AUTOMATED NEUTROPHIL # 4.1 TH/MM3 (1.8-7.7); BASOPHIL # 0.1 TH/MM3 (0-0.2); BASOPHIL % 0.7 % (0.0-2.0); EOSINOPHIL % 0.2 % (0.0-4.0); HEMATOCRIT 43.2 % (35.0-46.0); LYMPH % 31.5 % (9.0-44.0); LYMPHOCYTE # 2.3 TH/MM3 (1.0-4.8); MEAN CELL VOLUME 77.8 FL (80.0-100.0); MEAN CORPUSCULAR HEMOGLOBIN 26.3 PG (27.0-34.0); MEAN CORPUSCULAR HGB CONC 33.8 % (32.0-36.0); MONO % 11.7 % (0.0-8.0); NEUT % 55.9 % (16.0-70.0); PLATELET COUNT 574 TH/MM3 (150-450); RED BLOOD COUNT 5.56 MIL/MM3 (4.00-5.30); RED CELL DISTRIBUTION WIDTH 15.1 % (11.6-17.2); WHITE BLOOD COUNT 7.3 TH/MM3 (4.0-11.0)
[2016-07-16 05:30] LABS: HEMO FLAGS DIFF FINAL
[2016-07-16 06:12] LABS: BICARBONATE 26.6 MEQ/L (21.0-32.0)
[2016-07-16 06:13] LABS: POTASSIUM 3.7 MEQ/L (3.5-5.1)
[2016-07-16] MEDS ORDERED: ACETAMINOPHEN/HYDROcodone 325 MG/5 MG TAB PO ONE (07:00)
[2016-07-16] MEDS ORDERED: PROM1SUP7 RECTAL (07:09)
--- NOTE | 2016-07-16 07:09 | PD ---
HPI Chief Complaint: GI Complaint Time Seen by Provider: 04:23 Travel History International Travel<30 days: No Contact w/Intl Traveler<30days: No Traveled to known affect area: No History of Present Illness HPI Patient 31-year-old female presents emergency department for evaluation of abdominal pain. Patient states she was evaluated and outside facility earlier this week and was prescribed Zofran she is unable to keep it down. States her pain is epigastric in nature sharp and "severe". She denies any diarrhea or constipation denies any fevers denies any dysuria denies any vaginal bleeding vaginal discharge. Patient states symptoms been going on for the past 4-5 days and gradually worsening. PFSH Past Medical History Anxiety: Yes Depression: Yes Gastrointestinal Disorders: Yes (GASTRITIS) ?: Not LMP: 07/13/16 Past Surgical History Abdominal Surgery: Yes (HERNIA REPAIR) Appendectomy: Yes Cholecystectomy: Yes Other Surgery: Yes (cysts removed off head, axillae, buttock) Social History Alcohol Use: Yes (social) Tobacco Use: Yes (1ppd) Substance Use: No (denies but positive screen) Allergies-Medications (Allergen,Severity, Reaction): Coded Allergies: No Known Allergies (Unverified , 07/16/16) Reported Meds & Prescriptions Reported Meds & Active Scripts Active Phenergan Supp (Promethazine HCl) 25 Mg Supp 25 Mg RECTAL Q6H PRN Reported Celexa (Citalopram Hydrobromide) 20 Mg Tab 20 Mg PO DAILY Zyprexa (Olanzapine) 7.5 Mg Tab 7.5 Mg PO HS Review of Systems Except as stated in HPI: all other systems reviewed are Neg Physical Exam Narrative GENERAL: Well-developed well-nourished, standing on the side of the bed leaning over the stretcher and bouncing. SKIN: Focused skin assessment warm/dry. HEAD: Atraumatic. Normocephalic. EYES: Pupils equal and round. No scleral icterus. No injection or drainage. ENT: No nasal bleeding or discharge. Mucous membranes pink and moist. NECK: Trachea midline. No JVD. CARDIOVASCULAR: Regular rate and rhythm. No murmur appreciated. RESPIRATORY: No accessory muscle use. Clear to auscultation. Breath sounds equal bilaterally. GASTROINTESTINAL: Abdomen soft, non-tender, nondistended. Hepatic and splenic margins not palpable. No rebound no percussive tenderness. MUSCULOSKELETAL: No obvious deformities. No clubbing. No cyanosis. No edema. NEUROLOGICAL: Awake and alert. No obvious cranial nerve deficits. Motor grossly within normal limits. Normal speech. PSYCHIATRIC: Appropriate mood and affect; insight and judgment normal. Data Data Last Documented VS Vital Signs Date Time Temp Pulse Resp B/P Pulse Ox O2 Delivery O2 Flow Rate FiO2 07/16/16 07:19 99 16 125/92 99 Room Air 07/16/16 04:08 98.7 Orders Urinalysis - C+S If Indicated (07/16/16 04:15) Ed Urine Pregnancytest Poc (07/16/16 04:15) Basic Metabolic Panel (Bmp) (07/16/16 04:23) Complete Blood Count With Diff (07/16/16 04:23) Lipase (07/16/16 04:23) Iv Access Insert/Monitor (07/16/16 04:23) Ecg Monitoring (07/16/16 04:23) Oximetry (07/16/16 04:23) Ondansetron Inj (Zofran Inj) (07/16/16 04:30) Sodium Chlor 0.9% 1000 Ml Inj (Ns 1000 M (07/16/16 04:23) Sodium Chloride 0.9% Flush (Ns Flush) (07/16/16 04:30) Ketorolac Inj (Toradol Inj) (07/16/16 05:00) Hepatic Functional Panel (07/16/16 06:30) Acetamin-Hydrocod 325-5 Mg ([place] 5-325 (07/16/16 07:00) Labs Laboratory Tests Test 07/16/16 04:35 White Blood Count 7.3 TH/MM3 Red Blood Count 5.56 MIL/MM3 Hemoglobin 14.6 GM/DL Hematocrit 43.2 % Mean Corpuscular Volume 77.8 FL Mean Corpuscular Hemoglobin 26.3 PG Mean Corpuscular Hemoglobin 33.8 % Concent Red Cell Distribution Width 15.1 % Platelet Count 574 TH/MM3 Mean Platelet Volume 8.5 FL Neutrophils (%) (Auto) 55.9 % Lymphocytes (%) (Auto) 31.5 % Monocytes (%) (Auto) 11.7 % Eosinophils (%) (Auto) 0.2 % Basophils (%) (Auto) 0.7 % Neutrophils # (Auto) 4.1 TH/MM3 Lymphocytes # (Auto) 2.3 TH/MM3 Monocytes # (Auto) 0.9 TH/MM3 Eosinophils # (Auto) 0.0 TH/MM3 Basophils # (Auto) 0.1 TH/MM3 CBC Comment DIFF FINAL Differential Comment Sodium Level 135 MEQ/L Potassium Level 3.7 MEQ/L Chloride Level 100 MEQ/L Carbon Dioxide Level 26.6 MEQ/L Anion Gap 8 MEQ/L Blood Urea Nitrogen 17 MG/DL Creatinine 1.05 MG/DL Estimat Glomerular Filtration 74 ML/MIN Rate Random Glucose 114 MG/DL Calcium Level 10.2 MG/DL Total Bilirubin 0.7 MG/DL Direct Bilirubin 0.1 MG/DL Indirect Bilirubin 0.6 MG/DL Aspartate Amino Transf 36 U/L (AST/SGOT) Alanine Aminotransferase 27 U/L (ALT/SGPT) Alkaline Phosphatase 90 U/L Total Protein 9.8 GM/DL Albumin 4.6 GM/DL Lipase 95 U/L MDM Medical Decision Making Medical Screen Exam Complete: Yes Emergency Medical Condition: Yes Differential Diagnosis Abdominal pain, gastritis, gastroenteritis, pancreatitis, cholecystitis seems unlikely. Narrative Course Patient was roomed emergency department, she was given Toradol and Zofran IV, and reassessment she is sleeping soundly. She awakes and states she still in extreme pain. Her abdomen is benign. Given her normal CBC and normal chemistry I think that the risks of radiation exposure outweigh the pretest probability of CAT scan and I do not believe that there is indication for further workup at this time. Discussed with the patient symptomatically management home and need follow-up the primary care physician of the [facility]. She was given a prescription for Phenergan suppository. She stable for discharge. Diagnosis Primary Impression: Abdominal pain Qualified Code: R10.84 - Generalized abdominal pain Med/Other Pt SpecificInfo: Prescription(s) given Scripts Promethazine Supp (Phenergan Supp)25 Mg Supp25 Mg RECTAL Q6H PRN (NAUSEA OR VOMITING) #12 SUPP Ref 0 Prov:Sarmad Juan MD 07/16/16 Disposition: 01 DISCHARGE HOME Condition: Stable Sarmad Juan MD July 16, 2016 07:09
[2016-07-16 07:16] LABS: INDIRECT BILIRUBIN 0.6 MG/DL (0.0-0.8); TOTAL BILIRUBIN ADULT 0.7 MG/DL (0.2-1.0)
[2016-07-16 07:19] VITALS: BP 125/92; PULSE 99; RESP 16; O2SAT 99
== END 2016-07-16 07:34 | disposition home or self-care (01) ==
LOC: NEPC 04:03
DX: R10.84 Generalized abdominal pain (principal); F17.200 Nicotine dependence, unspecified, uncomplicated; Z86.59 Personal history of other mental and behavioral disorders; Z87.19 Personal history of other diseases of the digestive system
CPT/HCPCS: 80048; 80076; 83690; 84703; 85025; 96361; 96374; 96375; 99284; J1885; J2405; J7030

== ENCOUNTER 2016-08-24 08:51 | Emergency (ER) | payer MEDICAID ==
[~2016-08-24] VITALS: Ht 167.6 cm; Wt 60.0 kg
[~2016-08-24 08:51] MED LIST changes: +CELE20TA PO; +PROM1SUP7 RECTAL; -ZOLO100T PO
[2016-08-24 08:53] VITALS: BP 123/100; PULSE 87; RESP 17; TEMP 99.4; O2SAT 97
[2016-08-24] MEDS ORDERED: SODIUM CHLOR 0.9% 1000 ML INJ 1,000 ML IV SCH (09:07)
[2016-08-24] MEDS ORDERED: SODIUM CHLORIDE 0.9% FLUSH 10 ML FLUSH IV FLUSH PRN (09:15)
[2016-08-24] MEDS ORDERED: ONDANSETRON HCL 4 MG/2 ML VIAL IVP ONE (09:15)
[2016-08-24] MEDS ORDERED: FAMOTIDINE 20 MG/2 ML VIAL IV PUSH ONE (09:15)
[2016-08-24 09:27] LABS: AUTOMATED NEUTROPHIL # 5.9 TH/MM3 (1.8-7.7); BASOPHIL # 0.1 TH/MM3 (0-0.2); BASOPHIL % 0.8 % (0.0-2.0); EOSINOPHIL % 0.3 % (0.0-4.0); HEMATOCRIT 42.4 % (35.0-46.0); HEMO FLAGS DIFF FINAL; LYMPH % 18.6 % (9.0-44.0); LYMPHOCYTE # 1.4 TH/MM3 (1.0-4.8); MEAN CELL VOLUME 77.8 FL (80.0-100.0); MEAN CORPUSCULAR HEMOGLOBIN 25.8 PG (27.0-34.0); MEAN CORPUSCULAR HGB CONC 33.1 % (32.0-36.0); NEUT % 77.3 % (16.0-70.0); PLATELET COUNT 496 TH/MM3 (150-450); RED BLOOD COUNT 5.45 MIL/MM3 (4.00-5.30); RED CELL DISTRIBUTION WIDTH 15.7 % (11.6-17.2); WHITE BLOOD COUNT 7.6 TH/MM3 (4.0-11.0)
[2016-08-24] MEDS ORDERED: LORazepam 2 MG/ML VIAL IV PUSH ONE (09:30)
--- NOTE | 2016-08-24 09:34 | PD ---
HPI Chief Complaint: GI Complaint Time Seen by Provider: 09:17 Travel History International Travel<30 days: No Contact w/Intl Traveler<30days: No Traveled to known affect area: No History of Present Illness HPI Patient is a 31-year-old female who presents to emergency room with complaints of nausea, vomiting and diarrhea since last night. Patient reports that she ate fast food last night, that her symptoms began shortly thereafter. Reports that she has not been able to keep down any of her medications for anxiety - patient is also complaining of increasing anxiety at this time. Patient reports that she has diffuse abdominal pain, reports that she is feeling nauseous, reports that she is also feeling dehydrated. Patient with no fevers or chills at this time. Denies any vaginal discharge or bleeding. Denies dysuria, urinary urgency or frequency. PFSH Past Medical History Anxiety: Yes Depression: Yes Diminished Hearing: No Gastrointestinal Disorders: Yes (GASTRITIS) Tetanus Vaccination: Unknown Influenza Vaccination: No ?: Not LMP: 3 WEEKS AGO Past Surgical History Abdominal Surgery: Yes (HERNIA REPAIR) Appendectomy: Yes Cholecystectomy: Yes Other Surgery: Yes (cysts removed off head, axillae, buttock) Social History Alcohol Use: Yes (OCC) Tobacco Use: Yes (1ppd) Substance Use: No (denies ) Allergies-Medications (Allergen,Severity, Reaction): Coded Allergies: No Known Allergies (Unverified , 08/24/16) Reported Meds & Prescriptions Reported Meds & Active Scripts Active Reported Celexa (Citalopram Hydrobromide) 20 Mg Tab 20 Mg PO DAILY Zyprexa (Olanzapine) 7.5 Mg Tab 7.5 Mg PO HS Review of Systems General / Constitutional: No: Fever Eyes: No: Visual changes HENT: No: Headaches Cardiovascular: No: Chest Pain or Discomfort Respiratory: No: Shortness of Breath Gastrointestinal: Positive: Nausea, Vomiting, Diarrhea, Abdominal Pain Genitourinary: No: Dysuria Musculoskeletal: No: Pain Skin: No Rash Neurologic: No: Weakness Psychiatric: Positive: Anxiety, No: Depression, Suicidal Ideations, Homicidal Ideation Endocrine: No: Polydipsia Hematologic/Lymphatic: No: Easy Bruising Physical Exam Narrative GENERAL: Mild distress SKIN: Focused skin assessment warm/dry. HEAD: Atraumatic. Normocephalic. EYES: Pupils equal and round. No scleral icterus. No injection or drainage. ENT: No nasal bleeding or discharge. Mucous membranes pink and moist. NECK: Trachea midline. No JVD. CARDIOVASCULAR: Regular rate and rhythm. No murmur appreciated. RESPIRATORY: No accessory muscle use. Clear to auscultation. Breath sounds equal bilaterally. GASTROINTESTINAL: Abdomen soft, non-tender, nondistended. Hepatic and splenic margins not palpable. MUSCULOSKELETAL: No obvious deformities. No clubbing. No cyanosis. No edema. NEUROLOGICAL: Awake and alert. No obvious cranial nerve deficits. Motor grossly within normal limits. Normal speech. PSYCHIATRIC: Patient anxious on exam, patient pacing in the room. Data Data Last Documented VS Vital Signs Date Time Temp Pulse Resp B/P Pulse Ox O2 Delivery O2 Flow Rate FiO2 08/24/16 10:24 68 18 135/76 100 Room Air 08/24/16 08:53 99.4 Orders Basic Metabolic Panel (Bmp) (08/24/16 09:07) Complete Blood Count With Diff (08/24/16 09:07) Lipase (08/24/16 09:07) Urinalysis - C+S If Indicated (08/24/16 09:07) Iv Access Insert/Monitor (08/24/16 09:07) Ondansetron Inj (Zofran Inj) (08/24/16 09:15) Sodium Chlor 0.9% 1000 Ml Inj (Ns 1000 M (08/24/16 09:07) Sodium Chloride 0.9% Flush (Ns Flush) (08/24/16 09:15) Famotidine Inj (Pepcid Inj) (08/24/16 09:15) Ed Urine Pregnancytest Poc (08/24/16 09:07) Lorazepam Inj (Ativan Inj) (08/24/16 09:30) Drug Screen, Random Urine (08/24/16 09:21) Chlorpromazine Inj (Thorazine Inj) (08/24/16 10:00) Psych Screen (08/24/16 09:56) Alcohol (Ethanol) (08/24/16 09:56) Labs Laboratory Tests Test 08/24/16 08/24/16 09:15 09:32 White Blood Count 7.6 TH/MM3 Red Blood Count 5.45 MIL/MM3 Hemoglobin 14.1 GM/DL Hematocrit 42.4 % Mean Corpuscular Volume 77.8 FL Mean Corpuscular Hemoglobin 25.8 PG Mean Corpuscular Hemoglobin 33.1 % Concent Red Cell Distribution Width 15.7 % Platelet Count 496 TH/MM3 Mean Platelet Volume 7.9 FL Neutrophils (%) (Auto) 77.3 % Lymphocytes (%) (Auto) 18.6 % Monocytes (%) (Auto) 3.0 % Eosinophils (%) (Auto) 0.3 % Basophils (%) (Auto) 0.8 % Neutrophils # (Auto) 5.9 TH/MM3 Lymphocytes # (Auto) 1.4 TH/MM3 Monocytes # (Auto) 0.2 TH/MM3 Eosinophils # (Auto) 0.0 TH/MM3 Basophils # (Auto) 0.1 TH/MM3 CBC Comment DIFF FINAL Differential Comment Sodium Level 140 MEQ/L Potassium Level 4.1 MEQ/L Chloride Level 106 MEQ/L Carbon Dioxide Level 25.8 MEQ/L Anion Gap 8 MEQ/L Blood Urea Nitrogen 9 MG/DL Creatinine 0.98 MG/DL Estimat Glomerular Filtration 80 ML/MIN Rate Random Glucose 133 MG/DL Calcium Level 10.1 MG/DL Lipase 83 U/L Ethyl Alcohol Level LESS THAN 3 MG/DL Urine Color YELLOW Urine Turbidity HAZY Urine pH 8.5 Urine Specific [place] 1.024 Urine Protein 100 mg/dL Urine Glucose (UA) NEG mg/dL Urine Ketones 10 mg/dL Urine Occult Blood NEG Urine Nitrite NEG Urine Bilirubin NEG Urine Urobilinogen LESS THAN 2.0 MG/DL Urine Leukocyte Esterase NEG Urine RBC 1 /hpf Urine WBC 1 /hpf Urine Squamous Epithelial 9 /hpf Cells Urine Bacteria RARE /hpf Urine Mucus FEW /lpf Microscopic Urinalysis Comment CULT NOT INDICATED Urine Opiates Screen NEG Urine Barbiturates Screen NEG Urine Amphetamines Screen NEG Urine Benzodiazepines Screen NEG Urine Cocaine Screen POS Urine Cannabinoids Screen POS MDM Medical Decision Making Medical Screen Exam Complete: Yes Emergency Medical Condition: Yes Interpretation(s) Vital Signs Date Time Temp Pulse Resp B/P Pulse Ox O2 Delivery O2 Flow Rate FiO2 08/24/16 08:53 99.4 87 17 123/100 97 Differential Diagnosis Patient's symptoms could be secondary to food poisoning, electrolyte abnormality , infection, anxiety reaction Narrative Course Patient is a 31-year-old female who presents to emergency room with complaints of nausea, vomiting and diarrhea after she ate at a fast food restaurant yesterday. Patient reports that she is extremely anxious, has been unable to keep any for anxiety medications, request medications for nausea as well as anxiety. Plan to obtain lab work, will give IV fluids as well as antiemetics and Ativan for anxiety. Plan to monitor patient and perform serial abdominal exams Patient requesting another dose of ativan for her anxiety, plan to give dose of chlorpromazine as this will also help with her nausea as well. Patient now reporting that she is hearing voices, request to speak to psych screeners Laboratory Tests Test 08/24/16 08/24/16 09:15 09:32 White Blood Count 7.6 TH/MM3 (4.0-11.0) Red Blood Count 5.45 MIL/MM3 (4.00-5.30) Hemoglobin 14.1 GM/DL (11.6-15.3) Hematocrit 42.4 % (35.0-46.0) Mean Corpuscular Volume 77.8 FL (80.0-100.0) Mean Corpuscular Hemoglobin 25.8 PG (27.0-34.0) Mean Corpuscular Hemoglobin 33.1 % Concent (32.0-36.0) Red Cell Distribution Width 15.7 % (11.6-17.2) Platelet Count 496 TH/MM3 (150-450) Mean Platelet Volume 7.9 FL (7.0-11.0) Neutrophils (%) (Auto) 77.3 % (16.0-70.0) Lymphocytes (%) (Auto) 18.6 % (9.0-44.0) Monocytes (%) (Auto) 3.0 % (0.0-8.0) Eosinophils (%) (Auto) 0.3 % (0.0-4.0) Basophils (%) (Auto) 0.8 % (0.0-2.0) Neutrophils # (Auto) 5.9 TH/MM3 (1.8-7.7) Lymphocytes # (Auto) 1.4 TH/MM3 (1.0-4.8) Monocytes # (Auto) 0.2 TH/MM3 (0-0.9) Eosinophils # (Auto) 0.0 TH/MM3 (0-0.4) Basophils # (Auto) 0.1 TH/MM3 (0-0.2) CBC Comment DIFF FINAL Differential Comment Sodium Level 140 MEQ/L (136-145) Potassium Level 4.1 MEQ/L (3.5-5.1) Chloride Level 106 MEQ/L (98-107) Carbon Dioxide Level 25.8 MEQ/L (21.0-32.0) Anion Gap 8 MEQ/L (5-15) Blood Urea Nitrogen 9 MG/DL (7-18) Creatinine 0.98 MG/DL (0.50-1.00) Estimat Glomerular Filtration 80 ML/MIN (>89) Rate Random Glucose 133 MG/DL (74-106) Calcium Level 10.1 MG/DL (8.5-10.1) Lipase 83 U/L (73-393) Ethyl Alcohol Level LESS THAN 3 MG/DL (0-5) Urine Color YELLOW (YELLW/STRAW) Urine Turbidity HAZY (CLEAR) Urine pH 8.5 (5.0-8.5) Urine Specific [place] 1.024 (1.002-1.035) Urine Protein 100 mg/dL (NEG-TRACE) Urine Glucose (UA) NEG mg/dL (NEG) Urine Ketones 10 mg/dL (NEG) Urine Occult Blood NEG (NEG) Urine Nitrite NEG (NEG) Urine Bilirubin NEG (NEG) Urine Urobilinogen LESS THAN 2.0 MG/DL (LESS THAN 2.0) Urine Leukocyte Esterase NEG (NEG) Urine RBC 1 /hpf (0-3) Urine WBC 1 /hpf (0-5) Urine Squamous Epithelial 9 /hpf (0-5) Cells Urine Bacteria RARE /hpf (NONE) Urine Mucus FEW /lpf (OCC) Microscopic Urinalysis Comment CULT NOT INDICATED Urine Opiates Screen NEG (NEG) Urine Barbiturates Screen NEG (NEG) Urine Amphetamines Screen NEG (NEG) Urine Benzodiazepines Screen NEG (NEG) Urine Cocaine Screen POS (NEG) Urine Cannabinoids Screen POS (NEG) Patient resting comfortably and in NAD, patient cleared for psych screener Diagnosis Primary Impression: Nausea vomiting and diarrhea Additional Impressions: Abdominal pain Anxiety Patient Instructions: General Instructions Additional Instructions: Return to ER as needed Please follow up with your primary care doctor in 24-48 hours Michelle Sorensen DO Aug 24, 2016 09:34
[2016-08-24 09:44] LABS: BICARBONATE 25.8 MEQ/L (21.0-32.0)
[2016-08-24 09:45] LABS: POTASSIUM 4.1 MEQ/L (3.5-5.1)
[2016-08-24 09:54] LABS: BLOOD, URINE NEG (NEG); GLUCOSE,URINE NEG (NEG); KETONE, URINE 10 mg/dL (NEG); NITRITE,URINE NEG (NEG); PH, URINE 8.5 (5.0-8.5); URINE COLOR YELLOW (YELLW/STRAW)
[2016-08-24 09:56] LABS: BACTERIA, URINE RARE /hpf; MUCUS URINE FEW /lpf (OCC); SQUAMOUS EPITHELIAL CELL URINE 9 /hpf (0-5)
[2016-08-24 09:57] LABS: COMMENT (UR) CULT NOT INDICATED; CULTURE IF INDICATED CULT NOT INDICATED
[2016-08-24] MEDS ORDERED: chlorproMAZINE INJ 25 MG in SODIUM CHLORID 0.9% 500 ML INJ 500 ML IV ONE (10:00)
[2016-08-24 10:05] LABS: AMPHETAMINE, URINE NEG (NEG); BARBITURATES, URINE NEG (NEG); COCAINE, URINE POS (NEG)
[2016-08-24 10:24] VITALS: BP 135/76; PULSE 68; RESP 18; O2SAT 100
[2016-08-24 15:36] VITALS: BP 135/76
[2016-08-24] MEDS ORDERED: LORA-474 PO (15:38)
[2016-08-24] MEDS ORDERED: LORazepam 1 MG TAB PO ONE (15:45)
--- NOTE | 2016-08-24 15:50 | PD ---
History of Present Illness Chief Complaint: GI Complaint Time Seen by Provider: 15:30 Travel History International Travel<30 Days: No Contact w/Intl Traveler<30days: No Known affected area: No Legal Status Legal Status: Voluntary History of Present Illness: 31-year-old female presented voluntarily to the emergency department with symptoms of nausea, vomiting and anxiety. Patient is pacing throughout [place] complaining of serious anxiety and continued gastrointestinal system problems. This physician reviewed the patient's record and determine she is positive for both cocaine and cannabinoids. Patient has also been to the emergency department on a number of occasions with gastritis complaints and anxiety complaints. She does not appear to have a diagnosis of a major mental disorder. She is not suicidal, homicidal or psychotic. Cognition is intact and the patient is competent. This physician is ordering 1 mg of Ativan by mouth and a prescription for 12 1 mg pills to go home. Patient does not meet criteria for Lipscomb act or inpatient psychiatric hospitalization. She does have a problem of cocaine abuse as this will make her anxiety significantly worse. Finally, her gastritis complaints should be addressed by a nonpsychiatric physician. PFSH Past Medical History Anxiety: Yes Depression: Yes Diminished Hearing: No Gastrointestinal Disorders: Yes (GASTRITIS) Tetanus Vaccination: Unknown Influenza Vaccination: No ?: Not LMP: 3 WEEKS AGO Past Surgical History Abdominal Surgery: Yes (HERNIA REPAIR) Appendectomy: Yes Cholecystectomy: Yes Other Surgery: Yes (cysts removed off head, axillae, buttock) Psychiatric History Psychiatric History Hx Psychiatric Treatment: UNKNOWN PATIENT IS NOT FORTH COMING AND VERY ANXIOUS. Review of records here at [facility] indicates no major mental illness History of Inpatient Treatment: Yes Social History Hx Alcohol Use: Yes (OCC) Hx Tobacco Use: Yes (1ppd) Hx Substance Use: No (denies ) Substance Use Type: Marijuana, Cocaine Hx of Substance Use Treatment: No Allergies-Medications (Allergen,Severity, Reaction): Coded Allergies: No Known Allergies (Unverified , 08/24/16) Reported Meds & Prescriptions Reported Meds & Active Scripts Active Ativan (Lorazepam) 1 Mg Tab 1 Mg PO Q8H PRN Reported Celexa (Citalopram Hydrobromide) 20 Mg Tab 20 Mg PO DAILY Zyprexa (Olanzapine) 7.5 Mg Tab 7.5 Mg PO HS Review of Systems Except as stated in HPI: all other systems reviewed are Neg Gastrointestinal: COMPLAINS OF: Abdominal pain, Nausea, Vomiting Psychiatric: COMPLAINS OF: Anxiety Exam Alert: Yes [place]: Person, Place, Date, Situation Mood: Anxious Affect: Labile Speech: Clear, Logical Eye Contact: Normal Memory Intact: Immediate, Recent, Remote Insight/Judgement Adequate MDM Medical Decision Making Medical Record Reviewed: Yes Assessment/Plan 31-year-old female with history of anxiety and gastritis presents with nausea vomiting and anxiety once again. Patient noted to be positive for cannabinoids and cocaine. This physician does not feel the patient meets criteria for inpatient psychiatric hospitalization or Lipscomb act. Patient was glad to receive 1 mg of Ativan and a prescription for Ativan. She can pursue treatment for anxiety on an outpatient basis and she is recommended to discontinue at least cocaine abuse. Patient places herself at risk for anxiety and gastritis due to her lifestyle. She was politely confronted with this information. Although she may continue to act out or engage in drug-seeking behavior, this physician does not feel it is therapeutic to admit her. Orders Basic Metabolic Panel (Bmp) (08/24/16 09:07) Complete Blood Count With Diff (08/24/16 09:07) Lipase (08/24/16 09:07) Urinalysis - C+S If Indicated (08/24/16 09:07) Iv Access Insert/Monitor (08/24/16 09:07) Ondansetron Inj (Zofran Inj) (08/24/16 09:15) Sodium Chlor 0.9% 1000 Ml Inj (Ns 1000 M (08/24/16 09:07) Sodium Chloride 0.9% Flush (Ns Flush) (08/24/16 09:15) Famotidine Inj (Pepcid Inj) (08/24/16 09:15) Ed Urine Pregnancytest Poc (08/24/16 09:07) Lorazepam Inj (Ativan Inj) (08/24/16 09:30) Drug Screen, Random Urine (08/24/16 09:21) Chlorpromazine Inj (Thorazine Inj) (08/24/16 10:00) Psych Screen (08/24/16 09:56) Alcohol (Ethanol) (08/24/16 09:56) Diet Regular Basic (08/24/16 Dinner) Lorazepam (Ativan) (08/24/16 15:45) Results Vital Signs Date Time Temp Pulse Resp B/P Pulse Ox O2 Delivery O2 Flow Rate FiO2 08/24/16 15:36 68 18 135/76 100 08/24/16 10:24 68 18 135/76 100 Room Air 08/24/16 08:53 99.4 87 17 123/100 97 Laboratory Tests Test 08/24/16 08/24/16 09:15 09:32 White Blood Count 7.6 Red Blood Count 5.45 Hemoglobin 14.1 Hematocrit 42.4 Mean Corpuscular Volume 77.8 Mean Corpuscular Hemoglobin 25.8 Mean Corpuscular Hemoglobin 33.1 Concent Red Cell Distribution Width 15.7 Platelet Count 496 Mean Platelet Volume 7.9 Neutrophils (%) (Auto) 77.3 Lymphocytes (%) (Auto) 18.6 Monocytes (%) (Auto) 3.0 Eosinophils (%) (Auto) 0.3 Basophils (%) (Auto) 0.8 Neutrophils # (Auto) 5.9 Lymphocytes # (Auto) 1.4 Monocytes # (Auto) 0.2 Eosinophils # (Auto) 0.0 Basophils # (Auto) 0.1 CBC Comment DIFF FINAL Differential Comment Sodium Level 140 Potassium Level 4.1 Chloride Level 106 Carbon Dioxide Level 25.8 Anion Gap 8 Blood Urea Nitrogen 9 Creatinine 0.98 Estimat Glomerular Filtration 80 Rate Random Glucose 133 Calcium Level 10.1 Lipase 83 Ethyl Alcohol Level LESS THAN 3 Urine Color YELLOW Urine Turbidity HAZY Urine pH 8.5 Urine Specific [place] 1.024 Urine Protein 100 Urine Glucose (UA) NEG Urine Ketones 10 Urine Occult Blood NEG Urine Nitrite NEG Urine Bilirubin NEG Urine Urobilinogen LESS THAN 2.0 Urine Leukocyte Esterase NEG Urine RBC 1 Urine WBC 1 Urine Squamous Epithelial 9 Cells Urine Bacteria RARE Urine Mucus FEW Microscopic Urinalysis Comment CULT NOT INDICATED Urine Opiates Screen NEG Urine Barbiturates Screen NEG Urine Amphetamines Screen NEG Urine Benzodiazepines Screen NEG Urine Cocaine Screen POS Urine Cannabinoids Screen POS Diagnosis Primary Impression: Adjustment disorder with anxiety Additional Impression: Cocaine abuse Patient Instructions: General Instructions Additional Instructions: Return to ER as needed Please follow up with your primary care doctor in 24-48 hours Prescriptions Lorazepam (Ativan)1 Mg Tab1 Mg PO Q8H PRN (ANXIETY AND/OR AGITATION) #12 TAB Ref 0 Prov:Maikol Celestin MD 08/24/16 Problem Qualifiers Maikol Celestin MD Aug 24, 2016 15:50
== END 2016-08-24 16:14 | disposition home or self-care (01) ==
LOC: NEPE 08:51 → NEPJ 16:14
DX: F43.22 Adjustment disorder with anxiety (principal); F14.10 Cocaine abuse, uncomplicated; K29.70 Gastritis, unspecified, without bleeding; F17.200 Nicotine dependence, unspecified, uncomplicated; Z79.899 Other long term (current) drug therapy
CPT/HCPCS: 80048; 80307; 81001; 83690; 84703; 85025; 96361; 96365; 96366; 96375; 99284; J2060; J2405; J3230; J7030; J7040

== ENCOUNTER 2016-08-25 08:36 | Emergency (ER) | payer MEDICAID ==
[~2016-08-25] VITALS: Ht 165.1 cm; Wt 60.0 kg
[~2016-08-25 08:36] MED LIST changes: +LORA-474 PO; -PROM1SUP7 RECTAL
[2016-08-25 08:37] VITALS: BP 138/87; PULSE 66; RESP 18; TEMP 97.8; O2SAT 98
[2016-08-25] MEDS ORDERED: ONDANSETRON HCL 4 MG/2 ML VIAL IV PUSH ONE (09:15)
[2016-08-25] MEDS ORDERED: SODIUM CHLORIDE 0.9% FLUSH 10 ML FLUSH IV FLUSH PRN (09:15)
--- NOTE | 2016-08-25 09:49 | PD ---
HPI Chief Complaint: Medical Clearance Time Seen by Provider: 09:08 Travel History International Travel<30 days: No Contact w/Intl Traveler<30days: No Traveled to known affect area: No History of Present Illness HPI 31 y/o female states that she has been vomiting blood since she was discharged yesterday. She states she's had about 2 episodes. She cannot quantify the amount. She states she is also concerned because the doctor did not sign her Ativan prescription and shows me this. She states that she also just doesn't feel well. She denies any other concurrent complaints. Patient is a poor historian to get additional details but states that it is bright red. PFSH Past Medical History Anxiety: Yes Depression: Yes Diminished Hearing: No Gastrointestinal Disorders: Yes (GASTRITIS) Past Surgical History Abdominal Surgery: Yes (HERNIA REPAIR) Appendectomy: Yes Cholecystectomy: Yes Other Surgery: Yes (cysts removed off head, axillae, buttock) Social History Alcohol Use: Yes (OCC) Tobacco Use: Yes (1ppd) Substance Use: No (denies ) Allergies-Medications (Allergen,Severity, Reaction): Coded Allergies: No Known Allergies (Unverified , 08/25/16) Reported Meds & Prescriptions Reported Meds & Active Scripts Active Ativan (Lorazepam) 1 Mg Tab 1 Mg PO Q8H PRN Reported Celexa (Citalopram Hydrobromide) 20 Mg Tab 20 Mg PO DAILY Zyprexa (Olanzapine) 7.5 Mg Tab 7.5 Mg PO HS Review of Systems ROS Limitations: Poor Historian Except as stated in HPI: all other systems reviewed are Neg Physical Exam Narrative GENERAL: Well-nourished, well-developed patient. SKIN: Warm and dry. HEAD: Normocephalic and atraumatic. EYES: No injection or drainage. ENT: No nasal drainage noted. NECK: Supple, trachea midline. CARDIOVASCULAR: Regular rate and rhythm RESPIRATORY: No increased effort. No accessory muscle use. GASTROINTESTINAL: Abdomen soft, mild tenderness in epigastric area, nondistended. NEUROLOGICAL: Awake and alert. Motor and sensory grossly within normal limits. Normal speech. Data Data Last Documented VS Vital Signs Date Time Temp Pulse Resp B/P Pulse Ox O2 Delivery O2 Flow Rate FiO2 08/25/16 08:37 97.8 66 18 138/87 98 Orders Sodium Chloride 0.9% Flush (Ns Flush) (08/25/16 09:15) Ondansetron Inj (Zofran Inj) (08/25/16 09:15) MDM Medical Decision Making Medical Screen Exam Complete: Yes Emergency Medical Condition: Yes Medical Record Reviewed: Yes (past history confirm, recent visit from yesterday reviewed) Differential Diagnosis Anemia, gastritis, dehydration Narrative Course Will check blood work and dose with Zofran and IV fluids and reevaluate Patient states to nursing staff while I was with the patient that she has to go take care of her son and needs to leave AMA. Patient left AMA before I could talk with her again but was alert and oriented Diagnosis Primary Impression: Left against medical advice Patient Instructions: General Instructions Disposition: 07 AGAINST MEDICAL ADVICE Condition: Stable Emily Hooks MD Aug 25, 2016 09:49
== END 2016-08-25 09:49 | disposition left against medical advice (07) ==
LOC: NEPC 08:36
DX: K92.0 Hematemesis (principal); F17.210 Nicotine dependence, cigarettes, uncomplicated; Z79.899 Other long term (current) drug therapy
CPT/HCPCS: 99281

== ENCOUNTER 2016-08-27 18:41 | Emergency (ER) | payer MEDICAID ==
[~2016-08-27] VITALS: Ht 165.1 cm; Wt 55.0 kg
[2016-08-27 18:44] VITALS: BP 128/88; PULSE 91; RESP 20; TEMP 98.9; O2SAT 99
[2016-08-27] MEDS ORDERED: SODIUM CHLOR 0.9% 1000 ML INJ 1,000 ML IV ONE (19:18)
--- NOTE | 2016-08-27 19:26 | PD ---
HPI . Anxiety Chief Complaint: Anxiety Time Seen by Provider: 19:13 Travel History International Travel<30 days: No Contact w/Intl Traveler<30days: No Traveled to known affect area: No History of Present Illness HPI Patient presents with a 4 day history of increased anxiety. She states that it is associated with a headache, vomiting, chest pain. She states that she's been taking Zyprexa without relief. She notes no modifying factors. PFSH Past Medical History Anxiety: Yes Depression: Yes Diminished Hearing: No Gastrointestinal Disorders: Yes (GASTRITIS) ?: Not Past Surgical History Abdominal Surgery: Yes (HERNIA REPAIR) Appendectomy: Yes Cholecystectomy: Yes Other Surgery: Yes (cysts removed off head, axillae, buttock) Social History Alcohol Use: Yes (OCC) Tobacco Use: Yes (1ppd) Substance Use: No (denies ) Allergies-Medications (Allergen,Severity, Reaction): Coded Allergies: No Known Allergies (Unverified , 08/25/16) Reported Meds & Prescriptions Reported Meds & Active Scripts Active Ativan (Lorazepam) 1 Mg Tab 1 Mg PO Q8H PRN Reported Celexa (Citalopram Hydrobromide) 20 Mg Tab 20 Mg PO DAILY Zyprexa (Olanzapine) 7.5 Mg Tab 7.5 Mg PO HS Review of Systems Except as stated in HPI: all other systems reviewed are Neg Cardiovascular: Positive: Chest Pain or Discomfort Gastrointestinal: Positive: Vomiting, Abdominal Pain Psychiatric: Positive: Anxiety Physical Exam Narrative GENERAL: Awake and alert. Tearful. SKIN: Warm and dry. HEAD: Atraumatic. Normocephalic. EYES: Pupils equal and round. Extraocular movements intact. NECK: Trachea midline. Neck supple. CARDIOVASCULAR: Regular rate and rhythm. RESPIRATORY: No accessory muscle use. MUSCULOSKELETAL: No obvious deformities. No edema. NEUROLOGICAL: Awake and alert. No obvious cranial nerve deficits. Motor grossly within normal limits. Normal speech. PSYCHIATRIC: Anxious and tearful. Data Data Last Documented VS Vital Signs Date Time Temp Pulse Resp B/P Pulse Ox O2 Delivery O2 Flow Rate FiO2 08/27/16 18:44 98.9 91 20 128/88 99 Room Air Orders Iv Access Insert/Monitor (08/27/16 19:18) Sodium Chloride 0.9% Flush (Ns Flush) (08/27/16 19:30) Prochlorperazine Inj (Compazine Inj) (08/27/16 19:30) Diphenhydramine Inj (Benadryl Inj) (08/27/16 19:30) Sodium Chlor 0.9% 1000 Ml Inj (Ns 1000 M (08/27/16 19:18) Ketorolac Inj (Toradol Inj) (08/27/16 21:00) Lorazepam Inj (Ativan Inj) (08/27/16 21:15) MDM Medical Decision Making Medical Screen Exam Complete: Yes Emergency Medical Condition: Yes Differential Diagnosis Differential diagnosis of headache includes but is not limited to migraine, muscle contraction headache, brain tumor, brain bleed Narrative Course This patient presents with the chief complaint of anxiety, headache, chest pain , abdominal pain, vomiting. I will treat her with IV fluids and IV Compazine and Benadryl. The patient continued to complain with headache following the Compazine and Benadryl. She was given a dose of Toradol. The patient then complained that her anxiety was getting really bad again. That was treated with a dose of Ativan. Diagnosis Primary Impression: Anxiety Additional Impression: Headache Qualified Code: R51 - Acute nonintractable headache, unspecified headache type Patient Instructions: Anxiety (DC), General Instructions Disposition: 01 DISCHARGE HOME Condition: Stable Sara Buckley MD Aug 27, 2016 19:26
[2016-08-27] MEDS ORDERED: SODIUM CHLORIDE 0.9% FLUSH 10 ML FLUSH IVF PRN (19:30)
[2016-08-27] MEDS ORDERED: diphenhydrAMINE HCL 50 MG/ML VIAL IVP ONE (19:30)
[2016-08-27] MEDS ORDERED: PROCHLORPERAZINE INJ 10 MG/2 ML VIAL IVP ONE (19:30)
[2016-08-27] MEDS ORDERED: KETOROLAC TROMETHAMINE 30 MG/ML (IVP) VIAL IV PUSH ONE (21:00)
[2016-08-27] MEDS ORDERED: LORazepam 2 MG/ML VIAL IV PUSH ONE (21:15)
== END 2016-08-27 23:53 | disposition home or self-care (01) ==
LOC: NEPD 18:41
DX: F41.9 Anxiety disorder, unspecified (principal); R51 Headache; R07.9 Chest pain, unspecified; R10.9 Unspecified abdominal pain; R11.10 Vomiting, unspecified; F32.9 Major depressive disorder, single episode, unspecified; F17.200 Nicotine dependence, unspecified, uncomplicated; Z79.899 Other long term (current) drug therapy
CPT/HCPCS: 96361; 96374; 96375; 99284; J0780; J1200; J1885; J2060; J7030